=== PATIENT | female | born 1980 | race Caucasian/White ===

== ENCOUNTER → 2016-11-05 | Outpatient (CLI) | payer OTHER ==
[~2016-11-05] MED LIST: ATARAX PO; BIRTH CONTROL PILL; DEPO-PROVER150 MG/ML INJ; DESYREL50 MG PO; FIORINAL CAPSUL1 CAP PO; FLEXERIL10 M1 PO; FLEXERIL10 MG PO; HYDROXYZINE HCL25 M1 PO; IBUPROFEN PO; IBUPROFEN800 MG PO; MULTI VITAMIN1 EACH PO; NORCO1 TAB 10/3 PO; PAXIL PO; PEPCID AC20 MG PO; PRILOSEC20 MG PO; SINGULAIR PO; ULTRAM PO; ZOFRAN ODT4 MG PO; ZYRTEC PO; ZYRTEC5 MG PO
--- NOTE | ~2016-11-05 | CR169 ---
[facility]. [facility] A Service of [facility] RADIOLOGY TEXT RESULTS PATIENT: BREANA JOHNSON LOCATION: [facility] : [birth year] UNIT #: [id number] AGE: [address]: BOBBI RUFFIN MD SEX: F ORDER DR: [id number] [place] [id number] O MR#: [id number] Acc #: [id number] NAME: BREANA JOHNSON : 1980 SEX: F STUDY DATE/TIME: 11/05/2016 14:24 UNIT: [facility] ROOM: STUDY DESCRIPTION: CR Knee 2 Views Lt Attending Physician: Bobbi Ruffin M.D. Referring Physician: Bobbi Ruffin M.D. Ordering Physician: Bobbi Ruffin M.D. Primary Care Physician: Bobbi Ruffin M.D. MEDICAL IMAGING REPORT This report is preliminary unless electronic signature is present. EXAM Left knee. DATE OF EXAM 11/05/2016 LOCATION [facility]. HISTORY 36-year-old woman, swelling left knee 4 months duration. COMPARISON None. FINDINGS AP and lateral views of the left knee demonstrate preservation of the joint space. Mineralization is preserved. Cortex intact. I see no loose body or joint effusion. Soft tissues appear unremarkable. IMPRESSION Negative left knee. Dictated by... Aldair Boone M.D. THIS IS AN ELECTRONICALLY VERIFIED REPORT Aldair Boone M.D. at 11/06/2016 9:00 AM CHANTEL/kiarra TD: 11/05/2016 16:02 [facility]. [facility] A Service of [facility] RADIOLOGY TEXT RESULTS PATIENT: BREANA JOHNSON LOCATION: [facility] : 82 UNIT #: [id number] AGE: [address]: BOBBI RUFFIN MD SEX: F ORDER DR: KHAI #: [id number] MEDICAL IMAGING REPORT Page 1 of 1
== END | disposition home or self-care (01) ==
LOC: SRAD 14:19
DX: M25.562 Pain in left knee (principal)
CPT/HCPCS: 73560

== ENCOUNTER → 2016-11-23 | Outpatient (CLI) | payer OTHER ==
--- NOTE | ~2016-11-23 | MR103 ---
[facility]. [facility] A Service of [facility] RADIOLOGY TEXT RESULTS PATIENT: BREANA JOHNSON LOCATION: [facility] : 82 UNIT #: [id number] AGE: [address]: BBOBI RUFFIN MD SEX: F ORDER DR: [id number] [address] [id number] O MR#: [id number] Acc #: [id number] NAME: BREANA JOHNSON : 1980 SEX: F STUDY DATE/TIME: 11/23/2016 17:10 UNIT: [facility] ROOM: STUDY DESCRIPTION: MR Knee Wo Contrast Lt Attending Physician: Bobbi Ruffin M.D. Ordering Physician: Bobbi Ruffin M.D. Primary Care Physician: Bobbi Ruffin M.D. MRI CENTER REPORT This report is preliminary unless electronic signature is present. EXAM MRI left knee, 11/23/2016 COMPARISON Left knee radiographs, 11/05/2016. Patient visit summary date unclear. HISTORY Order states pain in left knee. History sheet states no surgery. Possible injury 09/05/2016 doing gymnastics with daughter. Posterior left knee has not improved for 3 months. No knee surgery. FINDINGS The patient's visit summary states request left knee MRI no contrast. Left knee pain with posterior soft tissue mass. No effusion or popliteal cyst is noted. No soft tissue masses or encapsulated lipomas are noted in the area covered. Soft tissue mass protocol was not utilized. Patellofemoral alignment and articular cartilage are normal. Quadriceps and patellar tendons are intact. There is trace inflammation superficial to the tibial tubercle and distal patellar tendon. Cruciate ligaments are normal. The lateral meniscus, lateral collateral ligament complex, and popliteus tendon are intact. Articular cartilage in lateral compartment is normal. The medial meniscus and MCL are normal. Articular cartilage of the medial compartment is normal. There is no marrow lesion, fracture, or sizeable loose body. [facility] A Service of [facility] RADIOLOGY TEXT RESULTS PATIENT: BREANA JOHNSON LOCATION: [facility] : 82 UNIT #: [id number] AGE: [address]: BOBBI RUFFIN MD SEX: F ORDER DR: IMPRESSION Nearly normal MRI of the left knee. There is very minimal subcutaneous inflammation anterior to the tibial tubercle and distal patellar tendon. Dictated by... Ayse Burger M.D. THIS IS AN ELECTRONICALLY VERIFIED REPORT Ayse Burger M.D. at 11/25/2016 8:33 AM YOSVANY/tanya TD: 11/24/2016 18:08 JOB #: [id number] MRI CENTER REPORT Page 1 of 1
== END | disposition home or self-care (01) ==
LOC: SMRI 16:39
DX: M25.562 Pain in left knee (principal)
CPT/HCPCS: 73721